=== PATIENT | female | born 1975 | race Caucasian/White ===

== ENCOUNTER 2016-12-15 12:45 | Emergency (ER) | payer MEDICAID, OTHER ==
[2016-12-15] MEDS ORDERED: LORazepam 2 MG/ML INJ ONE (12:53)
[2016-12-15] MEDS ORDERED: HALOPERIDOL LACT 5 MG/ML INJ ONE (13:02)
[2016-12-15] MEDS ORDERED: LORazepam 2 MG/ML INJ IVP ONE (13:05)
[2016-12-15] MEDS ORDERED: HALOPERIDOL LACT 5 MG/ML INJ IVP ONE (13:05)
[2016-12-15] MEDS ORDERED: NS 1,000 ML IV ONE ×3 (13:22→18:41)
[2016-12-15 13:30] LABS: % IMMATURE GRANULYOCYTES 0.3 % (0.0-1.1); ABSOLUTE IMMATURE GRANULOCYTES 0.05 10^3/uL (0.00-0.10); ADD DIFF? NO; ADD MORPH? NO; ADD SCAN? NO; ATYPICAL LYMPHOCYTE FLAG 0 (0-99); FRAGMENT RBC FLAG 0 (0-99); HEMATOCRIT 44.3 % (38.0-47.0); HEMOGLOBIN 14.8 g/dL (12.6-16.3); LEFT SHIFT FLG 20 (0-99); LIPEMIA HEMOLYSIS FLAG 80 (0-99); MEAN CELL HEMOGLOBIN 30.4 pg (27.9-34.1); MEAN CELL HEMOGLOBIN CONCENTR. 33.4 g/dL (32.4-36.7); PLATELET CLUMPS FLAG 0 (0-99); PLATELET COUNT 439 10^3/uL (150-400); RED BLOOD CELL COUNT 4.87 10^6/uL (4.18-5.33); RED CELL DISTRIBUTION WIDTH 13.5 % (11.5-15.2)
--- NOTE | 2016-12-15 13:30 | EDPHY ---
H & P Smoking Status: Unknown if ever smoked Time Seen by Provider: 12/15/16 12:48 HPI/ROS: HPI Agitation, altered mental status. 41-year-old female by ambulance from the [facility]. Patient admits to smoking methamphetamine and also using heroin recently. The staff at the [facility] reports patient was tweaking, agitated and delirious. No history of trauma. Patient states her last use of methamphetamine was last night. ROS: Constitutional: No fever, no chills. No weakness. Eyes: No discharge. No changes in vision. ENT: No sore throat. No nasal congestion or rhinorrhea. Respiratory: No cough. No shortness of breath. Cardiac: No chest pain, no palpitations. Gastrointestinal: No abdominal pain, no vomiting, no diarrhea. Genitourinary: No hematuria. No dysuria or increased frequency with urination. Musculoskeletal: No back pain. No neck pain. No myalgias or arthralgias. Skin: No rashes. Neurological: No headache. No focal weakness or altered sensation. Past medical history: Drug abuse. Social history: Polysubstance abuse, methamphetamine abuse, smoker, denies alcohol. Physical Exam: General Appearance: Alert, agitated, intermittently flails arms and legs. This patient appears well-hydrated and well-nourished. Head: Normocephalic atraumatic. Eyes: Pupils equal and round no pallor or injection. No lid edema, erythema or injection. ENT, Mouth: Mucous membranes are moist. The pharyngeal tissues are unremarkable. No edema or swelling. No asymmetry suggestive of abscess. No erythema or exudates. Respiratory: There are no retractions, lungs are clear to auscultation with good air movement bilaterally. Cardiovascular: Regular rate and rhythm. Tachycardia. No murmur. Gastrointestinal: Abdomen is soft and nontender, no masses, bowel sounds normal. No focal tenderness at McBurney's point. No Hill sign. Neurological: Motor sensory function is grossly intact. Cranial nerves are normal. Gait is normal. Skin: Warm and dry, no rashes. Musculoskeletal: Neck is supple and nontender. No midline cervical spine tenderness on palpation. Extremities are symmetrical. All joints range without pain or impingement. Psychiatric: No agitation. No depression. Database: EKG: Imaging: Procedures: Emergency department course: IV placed. She was placed on a campus monitor. Secondary to her agitation and sympathomimetic state she was given 2 mg of IV Ativan and 5 mg of IV Haldol. environmental monitoring technician shows a narrow complex sinus rhythm. 1:30 p.m., patient re-evaluated. Eyes are open but she appears relaxed. She does follow commands. Vital signs reviewed. environmental monitoring technician shows a narrow complex sinus rhythm ventricular rate of 92. Blood pressure 92/52 currently. 3:00 p.m., patient re-evaluated. Sleeping. Arouses to voice. environmental monitoring technician shows a narrow complex sinus rhythm with ventricular rate of 83. Blood pressure 109/71. Pulse oximetry 98%. Patient is not ready for discharge at this time. Plan will be to allow her to sleep in the emergency department while longer. Care will be turned over to Dr. Anaid Ornelas. Expected disposition is discharged to home when appropriately sober. Differential Diagnosis: The differential diagnosis on this patient includes but is not limited to methamphetamine abuse, heroin abuse, sympathomimetic toxicity. Meningitis, infectious disorder, traumatic brain injury unlikely. This represents a partial list of diagnoses considered. These considerations are based on history , physical exam, past history, reassessment and diagnostic testing. (Sara Gonzalez) Constitutional: Initial Vital Signs Temperature (C) 36.6 C 12/15/16 12:58 Heart Rate 110 H 12/15/16 12:58 Respiratory Rate 16 12/15/16 12:58 Blood Pressure 100/66 12/15/16 12:58 O2 Sat (%) 96 12/15/16 12:58 O2 Delivery Mode Room Air O2 (L/minute) 2 Allergies/Adverse Reactions: Sulfa (Sulfonamide Antibiotics) Allergy (Verified 12/15/16 12:57) Home Medications: Medication Instructions Recorded Clonidine 12/15/16 Zoloft 100mg (*) 12/15/16 Medical Decision Making Other Provider: I assumed care of this patient from Dr. Gonzalez at 3:00 p.m.. At 6:30 p.m. she was awake, after sleeping for hours. When I interviewed and examined her she had no new complaints. She said that she felt groggy still. She was not forthcoming about her recent drug use but admitted that she had [facility] "[facility]". At 6:30 p.m. she is not yet quite awake and alert enough to return to the [facility], but I am hopeful that she will be able to do so later today. She was re-evaluated again at 10:20 p.m.. At that time she is awake and alert. She states that she still feels a bit groggy. She tells me that she does not want to use methamphetamine again. I am encouraging her to return to [facility] for help with her substance abuse. However, she does not seem interested in that option at this point in time. She is not suicidal or homicidal. I do not do not think that she is gravely disabled. A friend, Gael, arrived and states that he is comfortable taking her home to his house where she can continue to rest. She again states that she is not interested in any further methamphetamine or other drug use. I encouraged her to return to the [facility] but she does not wish to do so. ( Anaid Ornelas) - Data Points Laboratory Results: Laboratory Results 12/15/16 12:55 12/15/16 12:55 12/15/16 22:25 Urine Opiates Screen NON-NEGATIVE H (NEGATIVE) Urine Barbiturates NEGATIVE (NEGATIVE) Ur Phencyclidine Scrn NEGATIVE (NEGATIVE) Ur Amphetamine Screen NON-NEGATIVE H (NEGATIVE) U Benzodiazepines Scrn NON-NEGATIVE H (NEGATIVE) Urine Cocaine Screen NEGATIVE (NEGATIVE) U Marijuana (THC) Screen NON-NEGATIVE H (NEGATIVE) Medications Given: Discontinued Medications Haloperidol Lactate (Haldol Injection) 5 mg IVP EDNOW ONE Stop: 12/15/16 13:06 Last Admin: 12/15/16 13:41 Dose: 5 mg Sodium Chloride (Ns) 1,000 mls @ 0 mls/hr IV EDNOW ONE; Wide Open PRN Reason: Protocol Stop: 12/15/16 13:23 Last Admin: 12/15/16 13:41 Dose: 1,000 mls Sodium Chloride (Ns) 1,000 mls @ 0 mls/hr IV EDNOW ONE; Wide Open PRN Reason: Protocol Stop: 12/15/16 13:23 Last Admin: 12/15/16 13:42 Dose: 1,000 mls Sodium Chloride (Ns) 1,000 mls @ 0 mls/hr IV ONCE ONE PRN Reason: Wide Open Stop: 12/15/16 18:42 Last Admin: 12/15/16 18:42 Dose: 1,000 mls Lorazepam (Ativan Injection) 2 mg IVP EDNOW ONE Stop: 12/15/16 13:06 Last Admin: 12/15/16 13:41 Dose: 2 mg Departure - Departure Disposition: Home, Routine, Self-Care Clinical Impression: Methamphetamine abuse Altered mental status Qualifiers: Altered mental status type: delirium Qualified Code(s): R41.0 - Disorientation , unspecified Condition: Good Instructions: Polysubstance Abuse (ED) Additional Instructions: Read and follow provided instructions. Follow-up with your primary care physician in 1-2 days for re-evaluation. Do not take methamphetamine or use drugs. Return to the emergency department for worsening symptoms or other serious concerns. Referrals: [facility] [Outside] - As per Instructions [facility] [Outside] - As per Instructions
[2016-12-15 13:38] LABS: ANION GAP 17 mEq/L (8-16); CARBON DIOXIDE 21 mEq/l (22-31); CHLORIDE 109 mEq/L (97-110); CREATININE 1.8 mg/dL (0.6-1.0); ETHANOL SERUM < 10 mg/dL (0-10); GLOMERULAR FILTRATION RATE 31; GLUCOSE 105 mg/dL (70-100); POTASSIUM 4.6 mEq/L (3.5-5.2); SODIUM 147 mEq/L (134-144)
[2016-12-15 23:55] VITALS: BP 113/75; PULSE 69; RESP 16; TEMP 99; O2SAT 92
== END 2016-12-15 23:55 | disposition home or self-care (01) ==
LOC: EDUNIT#
DX: R41.82 Altered mental status, unspecified (principal); F15.10 Other stimulant abuse, uncomplicated; E86.9 Volume depletion, unspecified
CPT/HCPCS: 80305; 96374; G0480; J2060